=== PATIENT | female | born 1950 | race Caucasian/White ===

== ENCOUNTER 2017-09-11 14:39 | Outpatient (CLI) | payer MEDICARE, BC | END 2017-09-11 14:40 | disposition home or self-care (01) | LOC: BICULT 14:39 | PROVIDERS: ATTEND Urology | DX: N28.1 Cyst of kidney, acquired (principal); R31.29 Other microscopic hematuria; R39.14 Feeling of incomplete bladder emptying | CPT/HCPCS: 36415; 76770; 80048; 81001; 87086; 88112 ==

== ENCOUNTER 2017-09-15 12:52 | Outpatient (CLI) | payer BC, MEDICARE | END 2017-09-15 12:53 | disposition home or self-care (01) | LOC: BICMAMMO 12:52 | PROVIDERS: ATTEND Family Medicine | DX: Z12.31 Encounter for screening mammogram for malignant neoplasm of breast (principal); Z13.820 Encounter for screening for osteoporosis; Z78.0 Asymptomatic menopausal state | CPT/HCPCS: 77063; 77067; 77080 ==

== ENCOUNTER 2018-11-27 07:56 | Outpatient (CLI) | payer MEDICARE ==
--- NOTE | 2018-11-27 09:46 | MMO ---
Bilateral MAMMO Bilat Screen [facility]. CLINICAL HISTORY: Patient is 68 years old and is seen for screening. The patient has no family history of breast cancer. The patient has no personal history of cancer. VIEWS: The views performed were: bilateral craniocaudal with tomosynthesis and bilateral mediolateral oblique with tomosynthesis. FILMS COMPARED: The present examination has been compared to prior imaging studies performed at [facility] on 05/26/2010, 06/02/2011, 12/14/2015 and 09/15/2017. This study has been interpreted with the assistance of computer-aided detection. MAMMOGRAM FINDINGS: There are scattered fibroglandular densities. There are no suspicious masses, suspicious calcifications, or new areas of architectural distortion. IMPRESSION: THERE IS NO MAMMOGRAPHIC EVIDENCE OF MALIGNANCY. A ROUTINE FOLLOW-UP MAMMOGRAM IN 1 YEAR IS RECOMMENDED. THE RESULTS OF THIS EXAM WERE SENT TO THE PATIENT. ACR BI-RADS Category 1 - Negative MAMMOGRAPHY NOTE: 1. A negative mammogram report should not delay a biopsy if a dominant of clinically suspicious mass is present. 2. Approximately 10% to 15% of breast cancers are not detected by mammography. 3. Adenosis and dense breasts may obscure an underlying neoplasm. Reported by: BOOKER FLETCHER MD Electonically Signed: [id number]
== END 2018-11-27 07:57 | disposition home or self-care (01) ==
LOC: BICMAMMO 07:56
PROVIDERS: ATTEND Family Medicine
DX: Z12.31 Encounter for screening mammogram for malignant neoplasm of breast (principal)
CPT/HCPCS: 77063; 77067

== ENCOUNTER 2019-03-21 12:06 | Day surgery (SDC) | payer MEDICARE ==
[2019-03-20 11:07] VITALS: BMI 46.7
[2019-03-21] MEDS ORDERED: PROPOFOL 200 MG/20 ML VIAL ONE (14:48)
--- NOTE | 2019-03-21 17:09 | OP ---
DATE OF PROCEDURE: 03/21/2019 PROCEDURE PERFORMED: Colonoscopy with snare polypectomy. PREPROCEDURE DIAGNOSIS: History of polyps. POSTPROCEDURE DIAGNOSES: 1. Exam to cecum; adequate bowel preparation. 2. 9 mm sessile polyp in the rectosigmoid colon, removed by snare electrocautery. 3. Two diminutive polyps in the transverse and ascending colon, respectively, removed by cold snare technique. 4. [id number] internal hemorrhoids. 5. Otherwise, normal colonoscopy. PROCEDURE IN DETAIL: Written informed consent was obtained. The patient was brought to the endoscopy suite. Total intravenous anesthesia was administered by Dr. Tyson and associates. The patient was placed in the left lateral decubitus position. A digital rectal exam was performed that revealed a small perianal tag. A Pentax video colonoscope was inserted through the anal canal and advanced under direct visualization to the cecum. Position in the cecum was verified by clear identification of the appendiceal orifice and the ileocecal valve. The quality of the bowel preparation was good. Each colon segment was examined carefully as the colonoscope was slowly withdrawn from the cecum. Vascular pattern and haustral folds appeared normal. In the rectosigmoid colon, a 9 mm sessile polyp was identified and removed by snare electrocautery. Good hemostasis was verified post polypectomy. The tissue was submitted to Pathology. In the proximal transverse colon, a 3 mm sessile polyp was identified and removed by cold snare technique. A similar sized polyp was also found in the mid ascending colon and removed by cold snare technique. All of the polyp tissue was retrieved and submitted to Pathology. In the rectum, a retroflexed view demonstrated [id number] internal hemorrhoids that were not actively bleeding. No other significant lesions were identified. The colon was decompressed as the colonoscope was completely removed from the patient. She was transferred to the Day Stay surgery area for postprocedure monitoring. There were no immediate complications. RECOMMENDATIONS: 1. Await pathology results. 2. Ask the patient to call me in 1 week for pathology results. 3. Repeat colonoscopy in 3 to 5 years pending pathology results. 4. Resume previous diet and medications. 5. Follow up in GI clinic as needed. Job ID: [id number]
== END 2019-03-21 15:19 | disposition home or self-care (01) ==
LOC: SDC 12:06
PROVIDERS: ATTEND Internal Medicine Gastroenterology
PROC: 0DBK8ZX Excision of Ascending Colon, Via Natural or Artificial Opening Endoscopic, Diagnostic (ICD-10-PCS; principal; 2019-03-21)
PROC: 0DBL8ZX Excision of Transverse Colon, Via Natural or Artificial Opening Endoscopic, Diagnostic (ICD-10-PCS; 2019-03-21)
PROC: 0DBP8ZX Excision of Rectum, Via Natural or Artificial Opening Endoscopic, Diagnostic (ICD-10-PCS; 2019-03-21)
DX: Z12.11 Encounter for screening for malignant neoplasm of colon (principal); D12.2 Benign neoplasm of ascending colon; D12.8 Benign neoplasm of rectum; K64.8 Other hemorrhoids; K64.4 Residual hemorrhoidal skin tags; I10 Essential (primary) hypertension; G47.30 Sleep apnea, unspecified; E66.01 Morbid (severe) obesity due to excess calories; Z68.42 Body mass index [BMI] 45.0-49.9, adult; Z86.010 Personal history of colon polyps
CPT/HCPCS: 88305; J2704

== ENCOUNTER 2019-11-15 09:50 | Outpatient (CLI) | payer MEDICARE ==
--- NOTE | 2019-11-15 10:54 | RAD ---
Exam: Lumbar spine 2 views HISTORY: Low back pain FINDINGS: AP and lateral weightbearing views demonstrate 5 lumbar type vertebra. Vertebral body heigh ts are maintained. No fracture. Disc space heights are preserved. 4.5 mm of anterolisthesis of L4 upon L5. No associated spondylolysis. Mild hypertrophic changes of th e facets at L4-L5 and L5-S1 Visualized sacrum and bony pelvis are intact IMPRESSION: Grade 1 anterolisthesis of L4 upon L5. There is evidence of facet hypertrophy.
== END 2019-11-15 09:51 | disposition home or self-care (01) ==
LOC: BICRAD 09:50
PROVIDERS: ATTEND Family Medicine
DX: M54.5 Low back pain (principal); M47.816 Spondylosis without myelopathy or radiculopathy, lumbar region; M43.16 Spondylolisthesis, lumbar region
CPT/HCPCS: 72100

== ENCOUNTER 2019-11-29 10:40 | Outpatient (CLI) | payer MEDICARE ==
--- NOTE | 2019-11-29 11:30 | MMO ---
Bilateral MAMMO Bilat Screen [facility]. CLINICAL HISTORY: Patient is 69 years old and is seen for screening. The patient has no family history of breast cancer. The patient has no personal history of cancer. VIEWS: The views performed were: bilateral craniocaudal with tomosynthesis and bilateral mediolateral oblique with tomosynthesis. FILMS COMPARED: The present examination has been compared to prior imaging studies performed at [facility] on 06/02/2011, 12/14/2015, 09/15/2017 and 11/27/2018. This study has been interpreted with the assistance of computer-aided detection. MAMMOGRAM FINDINGS: The breasts are almost entirely fat. There are no suspicious masses, suspicious calcifications, or new areas of architectural distortion. IMPRESSION: THERE IS NO MAMMOGRAPHIC EVIDENCE OF MALIGNANCY. A ROUTINE FOLLOW-UP MAMMOGRAM IN 1 YEAR IS RECOMMENDED. THE RESULTS OF THIS EXAM WERE SENT TO THE PATIENT. ACR BI-RADS Category 1 - Negative MAMMOGRAPHY NOTE: 1. A negative mammogram report should not delay a biopsy if a dominant of clinically suspicious mass is present. 2. Approximately 10% to 15% of breast cancers are not detected by mammography. 3. Adenosis and dense breasts may obscure an underlying neoplasm. Reported by: ESTRELLA VARGAS MD Electonically Signed: [id number]
== END 2019-11-29 10:41 | disposition home or self-care (01) ==
LOC: BICMAMMO 10:40
PROVIDERS: ATTEND Family Medicine
DX: Z12.31 Encounter for screening mammogram for malignant neoplasm of breast (principal)
CPT/HCPCS: 77063; 77067

== ENCOUNTER 2020-11-19 10:35 | Outpatient (CLI) | payer MEDICARE | END 2020-11-19 10:36 | disposition home or self-care (01) | LOC: BICRAD 10:35 | PROVIDERS: ATTEND Family Medicine | DX: M25.551 Pain in right hip (principal); M54.50 Low back pain, unspecified; M16.11 Unilateral primary osteoarthritis, right hip; M47.816 Spondylosis without myelopathy or radiculopathy, lumbar region | CPT/HCPCS: 72100 ==

== ENCOUNTER 2020-12-08 13:41 | Outpatient (CLI) | payer MEDICARE | END 2020-12-08 13:42 | disposition home or self-care (01) | LOC: BICMAMMO 13:41 | PROVIDERS: ATTEND Family Medicine | DX: Z12.31 Encounter for screening mammogram for malignant neoplasm of breast (principal) | CPT/HCPCS: 77063; 77067 ==

== ENCOUNTER 2021-09-03 08:22 | Outpatient (CLI) | payer MEDICARE | END 2021-09-03 08:23 | disposition home or self-care (01) | LOC: MRI 08:22 | PROVIDERS: ATTEND Nurse Practitioner Family | DX: M54.16 Radiculopathy, lumbar region (principal); M48.061 Spinal stenosis, lumbar region without neurogenic claudication; M48.07 Spinal stenosis, lumbosacral region | CPT/HCPCS: 72100; 72148 ==

== ENCOUNTER 2021-12-09 08:27 | Outpatient (CLI) | payer MEDICARE | END 2021-12-09 08:28 | disposition home or self-care (01) | LOC: BICMAMMO 08:27 | PROVIDERS: ATTEND Family Medicine | DX: Z12.31 Encounter for screening mammogram for malignant neoplasm of breast (principal) | CPT/HCPCS: 77063; 77067 ==

== ENCOUNTER 2021-12-15 19:00 | Outpatient (CLI) | payer MEDICARE | END 2021-12-15 19:01 | disposition home or self-care (01) | LOC: SLEEPLAB 19:00 | PROVIDERS: ATTEND Family Medicine | DX: G47.33 Obstructive sleep apnea (adult) (pediatric) (principal); R53.83 Other fatigue; R06.83 Snoring; G47.10 Hypersomnia, unspecified; I10 Essential (primary) hypertension; M54.9 Dorsalgia, unspecified; G89.29 Other chronic pain; G47.00 Insomnia, unspecified; D75.1 Secondary polycythemia; E66.9 Obesity, unspecified; Z68.41 Body mass index [BMI] 40.0-44.9, adult | CPT/HCPCS: 95810 ==

== ENCOUNTER 2022-01-28 19:30 | Outpatient (CLI) | payer MEDICARE | END 2022-01-28 19:31 | disposition home or self-care (01) | LOC: SLEEPLAB 19:30 | PROVIDERS: ATTEND Family Medicine | DX: G47.33 Obstructive sleep apnea (adult) (pediatric) (principal); R53.83 Other fatigue; R06.83 Snoring; G47.10 Hypersomnia, unspecified; D75.1 Secondary polycythemia; M54.9 Dorsalgia, unspecified; G89.29 Other chronic pain; G47.00 Insomnia, unspecified; G47.61 Periodic limb movement disorder; E66.9 Obesity, unspecified; Z68.41 Body mass index [BMI] 40.0-44.9, adult | CPT/HCPCS: 95811 ==

== ENCOUNTER 2022-09-06 09:23 | Outpatient (CLI) | payer MEDICARE | END 2022-09-06 09:24 | disposition home or self-care (01) | LOC: BICMRI 09:23 | PROVIDERS: ATTEND Specialist | DX: M47.26 Other spondylosis with radiculopathy, lumbar region (principal); M51.16 Intervertebral disc disorders with radiculopathy, lumbar region | CPT/HCPCS: 72148 ==

== ENCOUNTER 2022-09-07 07:54 | Outpatient (CLI) | payer MEDICARE | END 2022-09-07 07:55 | disposition home or self-care (01) | LOC: RAD 07:54 | PROVIDERS: ATTEND Specialist | DX: M47.26 Other spondylosis with radiculopathy, lumbar region (principal) | CPT/HCPCS: 72120 ==

== ENCOUNTER 2023-01-06 14:43 | Outpatient (CLI) | payer MEDICARE | END 2023-01-06 14:44 | disposition home or self-care (01) | LOC: BICMAMMO 14:43 | PROVIDERS: ATTEND Family Medicine | DX: Z12.31 Encounter for screening mammogram for malignant neoplasm of breast (principal) | CPT/HCPCS: 77063; 77067 ==

== ENCOUNTER 2023-12-07 11:49 | Outpatient (CLI) | payer MEDICARE | END 2023-12-07 11:50 | disposition home or self-care (01) | LOC: BICULT 11:49 | PROVIDERS: ATTEND Family Medicine | DX: M79.605 Pain in left leg (principal); M71.22 Synovial cyst of popliteal space [Baker], left knee; E78.2 Mixed hyperlipidemia; R73.03 Prediabetes; R03.0 Elevated blood-pressure reading, without diagnosis of hypertension | CPT/HCPCS: 36415; 80053; 80061; 83036; 85025 ==

== ENCOUNTER 2024-01-09 12:53 | Outpatient (CLI) | payer MEDICARE | END 2024-01-09 12:54 | disposition home or self-care (01) | LOC: BICMAMMO 12:53 | PROVIDERS: ATTEND Family Medicine | DX: Z12.31 Encounter for screening mammogram for malignant neoplasm of breast (principal) | CPT/HCPCS: 77063; 77067 ==

== ENCOUNTER 2025-01-10 09:20 | Outpatient (CLI) | payer MEDICARE | END 2025-01-10 09:21 | disposition home or self-care (01) | LOC: BICMAMMO 09:20 | PROVIDERS: ATTEND Family Medicine | DX: Z12.31 Encounter for screening mammogram for malignant neoplasm of breast (principal); Z78.0 Asymptomatic menopausal state | CPT/HCPCS: 77063; 77067; 77080 ==